=== PATIENT | male | born 1960 | race Caucasian/White ===

== ENCOUNTER 2019-12-20 10:32 | Day surgery (SDC) | payer OTHER ==
[~2019-12-20] VITALS: Ht 182.9 cm; Wt 99.3 kg
[~2019-12-20 10:32] MED LIST: ALBU90OI; ALBU90OI INH; ASPI81CH PO; ATOR80 PO; Aspirin EC81 MG; B Complete1 EACH; Bactrim 400-801 EACH PO; CENTRUM SILVER1 EAC2 PO; CENTRUM ULTRA1 EAC1; CYCLOPHOSPHAMID50 MG PO; ERGO50000; FURO40 PO; K-Dur 20 meq T20 MEQ PO; LISI20 PO; LOSA25; LOSA50 PO; LOVA40 PO; METO2.5; METO2.5 PO; METO25; Metoprolol Tart25 MG PO; Micro-K10 MEQ; Nitrostat0.4 MG SL; Omeprazole20 M1; Omeprazole20 M1 PO; PANT40 PO; PRED10 PO; PRED5 PO; ROSU10TA PO; Solu-Medrol1000 MG IV; VITAMIN D32000 UNIT PO
== END 2019-12-20 13:52 | disposition home or self-care (01) ==
LOC: ORSCSDS 10:32
PROVIDERS: Internal Medicine Gastroenterology
PROC: 0DBN8ZX Excision of Sigmoid Colon, Via Natural or Artificial Opening Endoscopic, Diagnostic (ICD-10-PCS; principal; 2019-12-20 12:15)
PROC: 0DBK8ZX Excision of Ascending Colon, Via Natural or Artificial Opening Endoscopic, Diagnostic (ICD-10-PCS; principal; 2019-12-20 12:15)
PROC: 0DBH8ZX Excision of Cecum, Via Natural or Artificial Opening Endoscopic, Diagnostic (ICD-10-PCS; principal; 2019-12-20 12:15)
PROC: 0DJ08ZZ Inspection of Upper Intestinal Tract, Via Natural or Artificial Opening Endoscopic (ICD-10-PCS; principal; 2019-12-20 12:15)
PROC: 0DBP8ZX Excision of Rectum, Via Natural or Artificial Opening Endoscopic, Diagnostic (ICD-10-PCS; principal; 2019-12-20 12:15)
PROC: 0DBC8ZX Excision of Ileocecal Valve, Via Natural or Artificial Opening Endoscopic, Diagnostic (ICD-10-PCS; principal; 2019-12-20 12:15)
DX: K52.9 Noninfective gastroenteritis and colitis, unspecified (principal); K74.60 Unspecified cirrhosis of liver; D12.0 Benign neoplasm of cecum; D12.2 Benign neoplasm of ascending colon; D12.5 Benign neoplasm of sigmoid colon; D12.8 Benign neoplasm of rectum; K62.1 Rectal polyp; K20.9 Esophagitis, unspecified; K76.6 Portal hypertension; K31.89 Other diseases of stomach and duodenum; K64.1 Second degree hemorrhoids; I10 Essential (primary) hypertension; J45.909 Unspecified asthma, uncomplicated; Z79.899 Other long term (current) drug therapy; Z87.891 Personal history of nicotine dependence; Z79.82 Long term (current) use of aspirin
CPT/HCPCS: 88305; J2250; J2704; J7120

== ENCOUNTER → 2022-12-14 | Outpatient (CLI) | payer OTHER ==
[2022-12-14 19:23] LABS: Creatinine, Urine Random 58.1 mg/dL (27.00-270.00); Protein, Urine Random 116.6 mg/dL (0.0-11.9)
== END | disposition home or self-care (01) ==
LOC: LAB SHORT 15:15 → LAB 15:15
PROVIDERS: Hospitalist
DX: N02.2 Recurrent and persistent hematuria with diffuse membranous glomerulonephritis (principal); N04.2 Nephrotic syndrome with diffuse membranous glomerulonephritis
CPT/HCPCS: 82570; 84156

== ENCOUNTER 2023-02-24 12:50 | Day surgery (SDC) | payer OTHER ==
[~2023-02-24] VITALS: Ht 182.9 cm; Wt 93.0 kg
[2023-02-24] MEDS ORDERED: BUPR150ER (13:22)
--- NOTE | 2023-02-24 14:58 | NUR ---
02/24/23 1458 Evans Morris IV REMOVED INTACT. SITE WNL.
[2023-02-24 14:59] VITALS: BP 103/78
== END 2023-02-24 15:05 | disposition home or self-care (01) ==
LOC: ORSCSDS 12:50
PROVIDERS: Internal Medicine Gastroenterology
PROC: 0DBM8ZX Excision of Descending Colon, Via Natural or Artificial Opening Endoscopic, Diagnostic (ICD-10-PCS; principal; 2023-02-24 14:15)
PROC: 0DJ08ZZ Inspection of Upper Intestinal Tract, Via Natural or Artificial Opening Endoscopic (ICD-10-PCS; principal; 2023-02-24 14:15)
PROC: 0DBL8ZX Excision of Transverse Colon, Via Natural or Artificial Opening Endoscopic, Diagnostic (ICD-10-PCS; principal; 2023-02-24 14:15)
PROC: 0DBP8ZX Excision of Rectum, Via Natural or Artificial Opening Endoscopic, Diagnostic (ICD-10-PCS; principal; 2023-02-24 14:15)
DX: Z12.11 Encounter for screening for malignant neoplasm of colon (principal); Z13.810 Encounter for screening for upper gastrointestinal disorder; K74.60 Unspecified cirrhosis of liver; Z86.010 Personal history of colon polyps; D12.3 Benign neoplasm of transverse colon; D12.4 Benign neoplasm of descending colon; D12.8 Benign neoplasm of rectum; K76.6 Portal hypertension; K31.89 Other diseases of stomach and duodenum; E78.5 Hyperlipidemia, unspecified; I10 Essential (primary) hypertension; N17.9 Acute kidney failure, unspecified; J45.909 Unspecified asthma, uncomplicated; Z79.899 Other long term (current) drug therapy; Z79.82 Long term (current) use of aspirin
CPT/HCPCS: 88305; J2250; J2405; J2704; J7120

== ENCOUNTER → 2023-06-21 | Outpatient (CLI) | payer OTHER ==
[~2023-06-21] MED LIST changes: +BUPR150ER
[2023-06-21 08:15] LABS: Source, Urine Voided
[2023-06-21 11:02] LABS: Appearance, Urine Clear (Clear); Bilirubin, Urine Neg (Neg); Blood, Urine 2+ (Neg); Color, Urine Yellow (P-Yellow); Glucose Qualitative, Urine Neg (Neg); Ketones, Urine Neg (Neg); Leukocyte Esterase, Urine Neg (Neg); Nitrite, Urine Neg (Neg); Protein, Urine 3+ (Neg); Specific Gravity, Urine 1.015 (1.003-1.022); Urobilinogen, Urine NORM (Normal)
[2023-06-21 11:10] LABS: Bacteria Rare /hpf; Squamous Epithelial Cells Rare /hpf (Few); White Blood Cells, Urine 0-2 /hpf (0-5)
[2023-06-21 12:46] LABS: Creatinine, Urine Random 84.1 mg/dL (27.00-270.00); Protein, Urine Random 138.7 mg/dL (0.0-11.9); Protein/Creat Ratio, Ur Random 1.6
== END | disposition home or self-care (01) ==
LOC: LAB SHORT 07:45 → LAB 07:45 → LAB FUT 06-14 15:55 → EDSTATUS 06-14 15:55
PROVIDERS: Hospitalist
DX: N02.2 Recurrent and persistent hematuria with diffuse membranous glomerulonephritis (principal); N04.20 Nephrotic syndrome with diffuse membranous glomerulonephritis, unspecified
CPT/HCPCS: 81001; 82570; 84156

== ENCOUNTER → 2024-01-30 | Outpatient (CLI) | payer OTHER ==
[2024-01-30 14:39] LABS: Bun/Creatinine Ratio 14.4 (12.0-20.0); Calcium, Blood 9.1 mg/dL (8.5-10.1); Creatinine, Blood 0.97 mg/dL (0.60-1.20); Potassium, Blood 3.6 mmol/L (3.5-5.5)
== END ==
LOC: LAB SHORT 07:56 → LAB 07:56
PROVIDERS: Internal Medicine
DX: I10 Essential (primary) hypertension (principal)
CPT/HCPCS: 80048

== ENCOUNTER 2025-04-03 19:16 | Inpatient (IN) | payer OTHER ==
[~2025-04-03] VITALS: Ht 177.8 cm; Wt 73.3 kg
[2025-04-03 19:41] LABS: BASOPHILS ABSOLUTE AUTO 0.06 K/mm3 (0.00-0.23); BASOPHILS PERCENT AUTO 1 % (0-2); EOSINOPHILS ABSOLUTE AUTO 0.10 K/mm3 (0.00-0.68); EOSINOPHILS PERCENT AUTO 1 % (0-6); Hematocrit 45.4 % (37.0-53.0); Hemoglobin 15.7 g/dL (13.5-17.5); IMMATURE GRAN ABSOLUTE AUTO 0.03 K/mm3 (0.00-0.10); IMMATURE GRAN PERCENT AUTO 0 % (0-1); LYMPHOCYTES ABSOLUTE AUTO 2.08 K/mm3 (0.84-5.20); LYMPHOCYTES PERCENT AUTO 20 % (21-46); MONOCYTES ABSOLUTE AUTO 1.07 K/mm3 (0.16-1.47); MONOCYTES PERCENT AUTO 10 % (4-13); Mean Corpuscular HGB Conc 34.6 g/dL (31.5-36.5); Mean Corpuscular Volume 96 fL (80-100); NEUTROPHILS ABSOLUTE AUTO 7.01 K/mm3 (1.96-9.15); NEUTROPHILS PERCENT AUTO 68 % (41-73); NRBC ABSOLUTE 0.00 K/mm3 (0.00-0.02); NRBC Auto 0.0 /100 WBC (0.0-0.2); Platelet Count 255 K/mm3 (150-400); RDW Coefficient Variation 12.3 % (11.7-14.2); RDW Standard Deviation 43.8 fL (35.1-46.3)
[2025-04-03] MEDS ORDERED: Diltiazem HCl 5 MG / ML 5ML Vial IV ONE (19:50)
[2025-04-03] MEDS ORDERED: NS 1,000 ML IV SCH (19:50)
[2025-04-03 20:11] LABS: Alanine Aminotransfer (ALT/SGP 29.0 U/L (12-78); Albumin, Blood 2.4 g/dL (3.4-5.0); Albumin/Globulin Ratio 0.5 (0.8-1.8); Anion Gap 9.0 mmol/L (3-11); Aspartate Aminotrans (AST/SGOT 30.0 U/L (12-37); Bilirubin, Total 0.4 mg/dL (0.1-1.0); Blood Urea Nitrogen 21.0 mg/dL (8-24); CO2, Blood 27.0 mmol/L (21-32); Calcium, Blood 11.2 mg/dL (8.5-10.1); Chloride, Blood 101.0 mmol/L (98-108); Creatinine, Blood 0.79 mg/dL (0.60-1.20); Globulin, Blood 4.9 g/dL (2.2-4.0); Glucose, Blood 112.0 mg/dL (70-99); Potassium, Blood 3.8 mmol/L (3.5-5.5); Sodium, Blood 133.0 mmol/L (136-145); Total Protein, Blood 7.3 g/dL (6.4-8.2)
[2025-04-04] MEDS ORDERED: FLU VACC TS2025-26(6MOS UP)/PF 45 MCG/0.5 ML SYRINGE IM SCH (00:50)
[2025-04-04 02:20] VITALS: BP 98/79
[2025-04-04] MEDS ORDERED: Metoprolol Tartrate 1 MG/ML 5 ML VIAL IV PRN (04:20)
[2025-04-04] MEDS ORDERED: Haloperidol Lactate Inj. 5 MG/ML Injection IV ONE (04:50)
[2025-04-04] MEDS ORDERED: FentaNYL Citrate 50 MCG/ML 2 ML Injection IV PRN (04:50)
--- NOTE | 2025-04-04 05:21 | NUR ---
ADMIT NOTE 64 YR OLD MALE ADMITTED TO FLOOR FROM THE ED WITH DX OF A FIB WITH RVR. ACCOMPANIED TO FLOOR BY WHO WAS ABLE TO ANSWER ADMIT AND MED HX QUESTIONS. PT WAS AGITATED IN THE ED AND UPON ARRIVAL ON FLOOR, 1:1 SITTER WAS INITIATED FOR SAFETY. PT VERY AGITATED, UNSTEADY ON FEET AND A/O X 1 (SELF). NOT REDIRECTABLE. MD ORDERS FOR ULISES OBTAINED. PRN MEDS ORDERED AND ADMINISTERED - SEE MAR FOR DETAILS. RAILS UP X 3, CALL LIGHT IN REACH, AND BED IN LOW POSITION FOR SAFETY.
[2025-04-04 07:56] LABS: BASOPHILS ABSOLUTE AUTO 0.09 K/mm3 (0.00-0.23); BASOPHILS PERCENT AUTO 1 % (0-2); EOSINOPHILS ABSOLUTE AUTO 0.06 K/mm3 (0.00-0.68); EOSINOPHILS PERCENT AUTO 1 % (0-6); Hematocrit 43.8 % (37.0-53.0); Hemoglobin 14.8 g/dL (13.5-17.5); IMMATURE GRAN ABSOLUTE AUTO 0.04 K/mm3 (0.00-0.10); IMMATURE GRAN PERCENT AUTO 0 % (0-1); LYMPHOCYTES ABSOLUTE AUTO 1.60 K/mm3 (0.84-5.20); LYMPHOCYTES PERCENT AUTO 15 % (21-46); MONOCYTES ABSOLUTE AUTO 1.08 K/mm3 (0.16-1.47); MONOCYTES PERCENT AUTO 10 % (4-13); Mean Corpuscular HGB Conc 33.8 g/dL (31.5-36.5); Mean Corpuscular Volume 97 fL (80-100); NEUTROPHILS ABSOLUTE AUTO 8.08 K/mm3 (1.96-9.15); NEUTROPHILS PERCENT AUTO 74 % (41-73); NRBC ABSOLUTE 0.00 K/mm3 (0.00-0.02); NRBC Auto 0.0 /100 WBC (0.0-0.2); Platelet Count 228 K/mm3 (150-400); RDW Coefficient Variation 12.5 % (11.7-14.2); RDW Standard Deviation 44.7 fL (35.1-46.3)
[2025-04-04 08:17] VITALS: BP 76/61
[2025-04-04 09:56] LABS: Alanine Aminotransfer (ALT/SGP 25.0 U/L (12-78); Albumin, Blood 2.3 g/dL (3.4-5.0); Albumin/Globulin Ratio 0.5 (0.8-1.8); Anion Gap 8.0 mmol/L (3-11); Aspartate Aminotrans (AST/SGOT 28.0 U/L (12-37); Bilirubin, Total 0.6 mg/dL (0.1-1.0); Blood Urea Nitrogen 18.0 mg/dL (8-24); CO2, Blood 27.0 mmol/L (21-32); Calcium, Blood 11.2 mg/dL (8.5-10.1); Chloride, Blood 103.0 mmol/L (98-108); Creatinine, Blood 0.87 mg/dL (0.60-1.20); Globulin, Blood 4.5 g/dL (2.2-4.0); Glucose, Blood 88.0 mg/dL (70-99); Magnesium, Blood 1.3 mg/dL (1.6-2.4); Potassium, Blood 3.9 mmol/L (3.5-5.5); Sodium, Blood 134.0 mmol/L (136-145); Total Protein, Blood 6.8 g/dL (6.4-8.2)
--- NOTE | 2025-04-04 09:56 | NUR ---
DISCUSSED CONCERNS WITH PATIENT'S BLOOD PRESSURE AND HEART RATE. METOPROLOL WAS HELD DUE TO BP. DR. PARNELL NOTIFIED, ALONG WITH THE PATIENT REFUSING TO TAKE HIS ELIQUIS. REQUESTED SOMETHING FOR PRN AGITATION OTHER THAN IM ZYPREXA. AFTER DISCUSSION WITH DR. PARNELL AND DR. MCCOY. THE PLAN WAS TO ORDER SOMETHING AND START THE PATIENT ON IV FLUIDS. AWAITING ORDERS.
[2025-04-04 10:52] LABS: Source, Urine Straight Cath
[2025-04-04 11:24] LABS: Bilirubin, Urine Neg (Neg); Color, Urine Yellow (P-Yellow); Glucose Qualitative, Urine Neg (Neg); Ketones, Urine Neg (Neg); Leukocyte Esterase, Urine Neg (Neg); Protein, Urine 3+ (Neg); Specific Gravity, Urine 1.020 (1.003-1.022); Urobilinogen, Urine NORM (Normal)
--- NOTE | 2025-04-04 11:36 | NUR ---
CALLED AND NOTIFIED DR. PARNELL ABOUT THE PATIENT'S A MAGNESIUM LEVEL. AWAITING ORDERS.
[2025-04-04 11:42] VITALS: BP 81/59
[2025-04-04] MEDS ORDERED: Magnesium Sulf 2 GM/Water 50ML 50 ML IV ONE (12:20)
[2025-04-04] MEDS ORDERED: LORazepam 2 MG/ML 1ML Injection IV ONE (13:00)
--- NOTE | 2025-04-04 13:03 | NUR ---
MET WITH PATIENT AND HIS MEGA. WE DISCUSSED PATIENTS RECENT CANCER DIAGNOSIS. HE HAD A HEAD AND PELVIC CT ONE MONTH AGO. DIAGNOSED WITH LUNC, LIVER AND SKULL CANCER. SAW ONCOLOGIST IN [place]. PATIENT HAS HAD DECREASED APPETITIE, INCREASED LETHARGY, AND INCREASED CONFUSION. WE HAD EXTENSIVE CONVERSATION ABOUT DIRECTION OF CARE. WE DISCUSSED CODE STATUS AND THE IMPLICATIONS OF CPR AND INTUBATION. MEGA IS HOPING THAT THE PATIENT MAKES SOME AMOUNT OF RECOVERY SO THAT HE CAN PARTICIPATE WITH DECISIONSL, BUT SHE IS PREPAIRED THAT HE MAY NOT. SHE IS UNCERTIAN ABOUT DECISIONS ABOUT CODE STATUS AT THIS TIME. PATIENT IS AGITATED IN BED. ASSISTED REPOSITIONING. PATIENT WAS BLADDER SCANNED AND STRAIGHTCATHED FOR RETENTION. WHEN THIS PCRN LEFT PATIENT WAS COMFORTABLE AND SLEEPING.
--- NOTE | 2025-04-04 13:47 | NUR ---
CHANGED DIET TO PUREE POST BREAKFAST DO TO PATIENT POCKETING FOOD AND NOT CHEWING THROUGHOUTLY. PATIENT'S MEGA SHARED THAT HE HAS BEEN HAVING ISSUES WITH THAT LATELY AND THEY HAVE BEEN MAINLY DOING YOGURT AND MILK.
[2025-04-04] MEDS ORDERED: Mag Sulfate 1 GM/D5% 100ML 100 ML IV ONE (14:30)
[2025-04-04 15:19] VITALS: BP 105/70
[2025-04-04] MEDS ORDERED: Mag Sulfate 1 GM/D5% 100ML 100 ML IV STA (15:59)
--- NOTE | 2025-04-04 16:18 | NUR ---
ASSUMED CARE OF PATIENT AT 1445
--- NOTE | 2025-04-04 19:27 | NUR ---
SHIFT SUMMARY PATIENT IS A&OX0-1. SITTING UP IN BED. URINE RETENTION REQUIRING 3 STRAIGHT CATHS AT Q4HR TODAY. LR IS RUNNING FOR 1L AT 200ML/HR. ON RA. TELE WITH SINUS TACH IN 1-TEENS. IS AMBULATORY WITH ASSISTANCE. BED IN LOWEST POSITION WITH BED ALARM ARMED.
[2025-04-04 20:11] VITALS: BP 107/80
[2025-04-05] VITALS (14 sets, daily range): BP systolic 88–112; BP diastolic 60–97
[2025-04-05] MEDS ORDERED: Lidocaine 2% Jelly Uro-Jet UR ONE (01:45)
[2025-04-05] MEDS ORDERED: LORazepam 2 MG/ML 1ML Injection IV ONE (04:05)
[2025-04-05 06:36] LABS: BASOPHILS ABSOLUTE AUTO 0.01 K/mm3 (0.00-0.23); BASOPHILS PERCENT AUTO 0 % (0-2); EOSINOPHILS ABSOLUTE AUTO 0.01 K/mm3 (0.00-0.68); EOSINOPHILS PERCENT AUTO 0 % (0-6); Hematocrit 43.5 % (37.0-53.0); Hemoglobin 14.7 g/dL (13.5-17.5); IMMATURE GRAN ABSOLUTE AUTO 0.03 K/mm3 (0.00-0.10); IMMATURE GRAN PERCENT AUTO 0 % (0-1); LYMPHOCYTES ABSOLUTE AUTO 0.97 K/mm3 (0.84-5.20); LYMPHOCYTES PERCENT AUTO 10 % (21-46); MONOCYTES ABSOLUTE AUTO 0.62 K/mm3 (0.16-1.47); MONOCYTES PERCENT AUTO 6 % (4-13); Mean Corpuscular HGB Conc 33.8 g/dL (31.5-36.5); Mean Corpuscular Volume 97 fL (80-100); NEUTROPHILS ABSOLUTE AUTO 8.35 K/mm3 (1.96-9.15); NEUTROPHILS PERCENT AUTO 84 % (41-73); NRBC ABSOLUTE 0.00 K/mm3 (0.00-0.02); NRBC Auto 0.0 /100 WBC (0.0-0.2); Platelet Count 232 K/mm3 (150-400); RDW Coefficient Variation 12.4 % (11.7-14.2); RDW Standard Deviation 44.4 fL (35.1-46.3)
[2025-04-05] MEDS ORDERED: Metoprolol Tartrate 1 MG/ML 5 ML VIAL IV ONE (07:00)
[2025-04-05 07:15] LABS: Alanine Aminotransfer (ALT/SGP 28.0 U/L (12-78); Albumin, Blood 2.1 g/dL (3.4-5.0); Albumin/Globulin Ratio 0.5 (0.8-1.8); Anion Gap 11.0 mmol/L (3-11); Aspartate Aminotrans (AST/SGOT 33.0 U/L (12-37); Bilirubin, Total 0.7 mg/dL (0.1-1.0); Blood Urea Nitrogen 21.0 mg/dL (8-24); CO2, Blood 23.0 mmol/L (21-32); Calcium, Blood 11.2 mg/dL (8.5-10.1); Chloride, Blood 106.0 mmol/L (98-108); Creatinine, Blood 0.81 mg/dL (0.60-1.20); Globulin, Blood 4.5 g/dL (2.2-4.0); Glucose, Blood 128.0 mg/dL (70-99); Magnesium, Blood 1.9 mg/dL (1.6-2.4); Potassium, Blood 4.5 mmol/L (3.5-5.5); Sodium, Blood 135.0 mmol/L (136-145); Total Protein, Blood 6.6 g/dL (6.4-8.2)
--- NOTE | 2025-04-05 07:36 | NUR ---
SHIFT SUMMARY ALERT, ORIENTED TO SELF ONLY. AGITATED FOR MOST OF SHIFT, PRN OLANZAPINE AND SEROQUEL WITH MINIMAL EFFECT. 1MG ATIVATN APPEARED MORE EFFECTIVE. SOFT BL WRIST RESTRAINTS IN PLACE FOR FREQUENT OUT OF BED, REMOVING TELE LEADS AND REMOVING CATH SECURE. UPTON CATH PLACED, PT TOLERATED FAIRLY. MD CONTACTED FOR INCREASING HR WITH BP 93/70; LOPRESSOR GIVEN PER MD. SAFETY PRECAUTIONS IN PLACE.
[2025-04-05] MEDS ORDERED: Enoxaparin 80 MG/0.8 ML SYR SC SCH (10:00)
[2025-04-05] MEDS ORDERED: Lidocaine 4% 1 Patch TOP PRN (11:35)
--- NOTE | 2025-04-05 13:05 | NUR ---
SPOKE TO DR CHAN. REQUEST TELE NOTIFY US IF H/R >120 SUSTAINED
--- NOTE | 2025-04-05 16:35 | NUR ---
Met with pt's Adela. She is tearful today, states she recognizes there is likely no path forward other than hospice. The patient is confused, combative, and has a metastatic cancer, likely with lung as primary source. Plan to contact Dr. Busch's office on 04/07 as he was consulted by Dr. Trejo (oncologist) in [place], [place].
--- NOTE | 2025-04-05 18:37 | NUR ---
PT WOKE UP THIS EARLY AFTERNOON. ABOUT 1PM. TALKING, BUT MUMBLES AND UNCLEAR OF WHAT HE WANTS. STATES HE HAS IMPROVED SOME, BUT NOT BASELINE. WAS BETTER PRIOR TO LUNG BIOPSY THIS MONDAY. CONTINUES TO PULL AT LINES IF CAN REACH, FAMILY IN TO VISIT MUCH OF DAY. LEFT WHEN HE GOT MORE COMBATIVE. H/R UP TODAY. TREATED WITH METOPROLOL THIS AM AND THIS SHAHIDA. BROUGHT DOWN TO WNL. BOLUSED FOR LOW BP THIS AM. ALSO DR STARTED MAINTANANCE FLUIDS. BECOMING SOMEWHAT MORE AGITATED THIS SHAHIDA. RESTRAINTS REMAIN FOR HIS SAFETY. BED IN LOW POSITIOIN, CALL LITE IN REACH, BED ALARM ON FOR HIS SAFETY
[2025-04-06] VITALS (9 sets, daily range): BP systolic 86–106; BP diastolic 70–83
[2025-04-06 06:05] LABS: BASOPHILS ABSOLUTE AUTO 0.01 K/mm3 (0.00-0.23); BASOPHILS PERCENT AUTO 0 % (0-2); EOSINOPHILS ABSOLUTE AUTO 0.00 K/mm3 (0.00-0.68); EOSINOPHILS PERCENT AUTO 0 % (0-6); Hematocrit 40.0 % (37.0-53.0); Hemoglobin 13.5 g/dL (13.5-17.5); IMMATURE GRAN ABSOLUTE AUTO 0.02 K/mm3 (0.00-0.10); IMMATURE GRAN PERCENT AUTO 0 % (0-1); LYMPHOCYTES ABSOLUTE AUTO 0.85 K/mm3 (0.84-5.20); LYMPHOCYTES PERCENT AUTO 10 % (21-46); MONOCYTES ABSOLUTE AUTO 0.46 K/mm3 (0.16-1.47); MONOCYTES PERCENT AUTO 5 % (4-13); Mean Corpuscular HGB Conc 33.8 g/dL (31.5-36.5); Mean Corpuscular Volume 96 fL (80-100); NEUTROPHILS ABSOLUTE AUTO 7.63 K/mm3 (1.96-9.15); NEUTROPHILS PERCENT AUTO 85 % (41-73); NRBC ABSOLUTE 0.00 K/mm3 (0.00-0.02); NRBC Auto 0.0 /100 WBC (0.0-0.2); Platelet Count 209 K/mm3 (150-400); RDW Coefficient Variation 12.5 % (11.7-14.2); RDW Standard Deviation 44.4 fL (35.1-46.3)
[2025-04-06 06:25] LABS: Alanine Aminotransfer (ALT/SGP 29.0 U/L (12-78); Albumin, Blood 2.0 g/dL (3.4-5.0); Albumin/Globulin Ratio 0.5 (0.8-1.8); Anion Gap 10.0 mmol/L (3-11); Aspartate Aminotrans (AST/SGOT 32.0 U/L (12-37); Bilirubin, Total 0.4 mg/dL (0.1-1.0); Blood Urea Nitrogen 27.0 mg/dL (8-24); CO2, Blood 24.0 mmol/L (21-32); Calcium, Blood 10.8 mg/dL (8.5-10.1); Chloride, Blood 109.0 mmol/L (98-108); Creatinine, Blood 0.68 mg/dL (0.60-1.20); Globulin, Blood 4.2 g/dL (2.2-4.0); Glucose, Blood 113.0 mg/dL (70-99); Magnesium, Blood 1.8 mg/dL (1.6-2.4); Phosphorus, Blood 3.0 mg/dL (2.5-4.9); Potassium, Blood 4.0 mmol/L (3.5-5.5); Sodium, Blood 139.0 mmol/L (136-145); Total Protein, Blood 6.2 g/dL (6.4-8.2)
[2025-04-06] MEDS ORDERED: Magnesium Sulf 2 GM/Water 50ML 50 ML IV ONE (07:05)
--- NOTE | 2025-04-06 07:19 | NUR ---
SHIFT SUMMARY ALERT, UNABLE TO ASSESS ORIENTATION. PT DENIES PAIN, NO SIGNS OF PAIN BY FLACC SCALE. PT ABLE TO REMOVE SOFT WRIST RESTRAINTS; RECEIVED ORDER FOR LOCKING WRIST RESTRAINTS. TUFF CUFFS MORE EFFECTIVE IN PREVENTING REMOVAL OF TELE LEADS AND PICKING AT CATH SECURE. LR CONTINUOUS AT 125 ML/HR. PRN LOPRESSOR GIVEN FOR HR 150-160 PER WEBBING INSPECTOR. SAFETY PRECAUTIONS IN PLACE.
[2025-04-06] MEDS ORDERED: LORazepam 2 MG/ML 1ML Injection IV PRN (09:55)
--- NOTE | 2025-04-06 18:11 | NUR ---
pt mostly restless today. removed restraints today and placed in recliner chair with bed alarm. got a sitter to keep safe. she has spent most of day when awake, keeping him from getting up on feet and from falling. sitter states he just cat-napping t/o day and he is trying to get up at least half of day. in to see today, now back in bed and building some more anx. will be medicating if possible shortly. no other new concerns noted. bed inlow position, call lite in reach, bed alarm on for safety, sitter at bedside for safety
[2025-04-07] VITALS (8 sets, daily range): BP systolic 97–131; BP diastolic 66–119
[2025-04-07 06:14] LABS: BASOPHILS ABSOLUTE AUTO 0.01 K/mm3 (0.00-0.23); BASOPHILS PERCENT AUTO 0 % (0-2); EOSINOPHILS ABSOLUTE AUTO 0.01 K/mm3 (0.00-0.68); EOSINOPHILS PERCENT AUTO 0 % (0-6); Hematocrit 38.7 % (37.0-53.0); Hemoglobin 13.1 g/dL (13.5-17.5); IMMATURE GRAN ABSOLUTE AUTO 0.02 K/mm3 (0.00-0.10); IMMATURE GRAN PERCENT AUTO 0 % (0-1); LYMPHOCYTES ABSOLUTE AUTO 0.65 K/mm3 (0.84-5.20); LYMPHOCYTES PERCENT AUTO 9 % (21-46); MONOCYTES ABSOLUTE AUTO 0.34 K/mm3 (0.16-1.47); MONOCYTES PERCENT AUTO 5 % (4-13); Mean Corpuscular HGB Conc 33.9 g/dL (31.5-36.5); Mean Corpuscular Volume 98 fL (80-100); NEUTROPHILS ABSOLUTE AUTO 6.12 K/mm3 (1.96-9.15); NEUTROPHILS PERCENT AUTO 86 % (41-73); NRBC ABSOLUTE 0.00 K/mm3 (0.00-0.02); NRBC Auto 0.0 /100 WBC (0.0-0.2); Platelet Count 193 K/mm3 (150-400); RDW Coefficient Variation 12.6 % (11.7-14.2); RDW Standard Deviation 45.3 fL (35.1-46.3)
--- NOTE | 2025-04-07 06:39 | NUR ---
SHIFT SUMMARY ALERT, ORIENTED TO SELF. FREQUENT OOB ATTEMPTS AND TUGGING LINES; RECEIVED ORDER FOR BL WRIST RESTRAINTS. HR 90-150s PER TELE MONITOR, OTHER VSS ON RA. LR, 125 ML/HR. UPTON PATENT. DAY 4, NO BM. 6 BEAT RUN OF VTACH NOTED AT 0530. PT'S SPEECH MORE CLEAR AND ON-TOPIC THIS SHIFT. TRIALLED AMBULATION; PT DIFFICULT TO REDIRECT. SAFETY PRECAUTIONS IN PLACE.
[2025-04-07 06:40] LABS: Alanine Aminotransfer (ALT/SGP 35.0 U/L (12-78); Albumin, Blood 2.1 g/dL (3.4-5.0); Albumin/Globulin Ratio 0.6 (0.8-1.8); Anion Gap 8.0 mmol/L (3-11); Aspartate Aminotrans (AST/SGOT 36.0 U/L (12-37); Bilirubin, Total 0.3 mg/dL (0.1-1.0); Blood Urea Nitrogen 25.0 mg/dL (8-24); CO2, Blood 27.0 mmol/L (21-32); Calcium, Blood 10.2 mg/dL (8.5-10.1); Chloride, Blood 110.0 mmol/L (98-108); Creatinine, Blood 0.69 mg/dL (0.60-1.20); Globulin, Blood 3.8 g/dL (2.2-4.0); Glucose, Blood 96.0 mg/dL (70-99); Magnesium, Blood 2.0 mg/dL (1.6-2.4); Phosphorus, Blood 3.0 mg/dL (2.5-4.9); Potassium, Blood 3.6 mmol/L (3.5-5.5); Sodium, Blood 141.0 mmol/L (136-145); Total Protein, Blood 5.9 g/dL (6.4-8.2)
--- NOTE | 2025-04-07 12:09 | NUR ---
LOCATED FINE NEEDLE ASPIRATION PATHOLOGY RESULTS FROM LOCATED WITHIN [facility] PATHOLOGY. ANDREWS RECEIVED COPY OF REFERRAL FROM DR.KHURAM ZARATE TO AT [facility]. SOURCE OF FLUID FROM SUBCARINAL, ENDOBRACHIAL LYMPH NODES DRAWN 03/31/25, RESULTED 04/02/25. COPY OF RESULTS TO BE PROVIDED TO .
[2025-04-07] MEDS ORDERED: Polyethylene Glycol 3350 17 gm PO PRN (13:35)
--- NOTE | 2025-04-07 13:35 | NUR ---
ATTEMPTED RESTRAINT BREAK. PATIENT RESPONDED WELL. EASILY REDIRECTABLE, FOLLOWING DIRECTIONS. BED ALARM ON FAMILY AT BEDSIDE. WILL DISCONTINUE RESTRAINTS AT THIS TIME. DR GONSALES
--- NOTE | 2025-04-07 18:48 | NUR ---
NOTIFIED DR OF 2.2 SEC PAUSE . VITALS ARE WNL. PT DENIES CP OR SOB. OR ANY PAIN AT THIS TIME. NO NEW ORDERS RECEIVED.
[2025-04-08 00:02] VITALS: BP 110/86
[2025-04-08] MEDS ORDERED: LORazepam 2 MG/ML 1ML Injection IV ONE (02:10)
[2025-04-08 03:18] VITALS: BP 104/81
[2025-04-08] MEDS ORDERED: Haloperidol Lactate Inj. 5 MG/ML Injection IV ONE (04:20)
[2025-04-08 06:26] LABS: BASOPHILS ABSOLUTE AUTO 0.00 K/mm3 (0.00-0.23); BASOPHILS PERCENT AUTO 0 % (0-2); EOSINOPHILS ABSOLUTE AUTO 0.00 K/mm3 (0.00-0.68); EOSINOPHILS PERCENT AUTO 0 % (0-6); Hematocrit 38.5 % (37.0-53.0); Hemoglobin 12.8 g/dL (13.5-17.5); IMMATURE GRAN ABSOLUTE AUTO 0.02 K/mm3 (0.00-0.10); IMMATURE GRAN PERCENT AUTO 0 % (0-1); LYMPHOCYTES ABSOLUTE AUTO 0.72 K/mm3 (0.84-5.20); LYMPHOCYTES PERCENT AUTO 12 % (21-46); MONOCYTES ABSOLUTE AUTO 0.45 K/mm3 (0.16-1.47); MONOCYTES PERCENT AUTO 7 % (4-13); Mean Corpuscular HGB Conc 33.2 g/dL (31.5-36.5); Mean Corpuscular Volume 97 fL (80-100); NEUTROPHILS ABSOLUTE AUTO 5.08 K/mm3 (1.96-9.15); NEUTROPHILS PERCENT AUTO 81 % (41-73); NRBC ABSOLUTE 0.00 K/mm3 (0.00-0.02); NRBC Auto 0.0 /100 WBC (0.0-0.2); Platelet Count 163 K/mm3 (150-400); RDW Coefficient Variation 12.8 % (11.7-14.2); RDW Standard Deviation 45.5 fL (35.1-46.3)
[2025-04-08 07:02] LABS: Alanine Aminotransfer (ALT/SGP 40.0 U/L (12-78); Albumin, Blood 2.1 g/dL (3.4-5.0); Albumin/Globulin Ratio 0.6 (0.8-1.8); Anion Gap 10.0 mmol/L (3-11); Aspartate Aminotrans (AST/SGOT 34.0 U/L (12-37); Bilirubin, Total 0.5 mg/dL (0.1-1.0); Blood Urea Nitrogen 20.0 mg/dL (8-24); CO2, Blood 25.0 mmol/L (21-32); Calcium, Blood 9.6 mg/dL (8.5-10.1); Chloride, Blood 112.0 mmol/L (98-108); Creatinine, Blood 0.68 mg/dL (0.60-1.20); Globulin, Blood 3.7 g/dL (2.2-4.0); Glucose, Blood 97.0 mg/dL (70-99); Magnesium, Blood 1.7 mg/dL (1.6-2.4); Phosphorus, Blood 3.1 mg/dL (2.5-4.9); Potassium, Blood 3.7 mmol/L (3.5-5.5); Sodium, Blood 143.0 mmol/L (136-145); Total Protein, Blood 5.8 g/dL (6.4-8.2)
--- NOTE | 2025-04-08 07:12 | NUR ---
SHIFT SUMMARY; PT A/O X2 (SELF/PERSON ONLY), FORGETS HER LIMITATIONS- GETTING OOB AND IS ANXIOUS AT TIMES, NOT USING CALL LIGHT APPROPRIATELY. PT MEDICATED THROUGHOUT NIGHT W/0.5 MG IV ATIVAN PRN. RT SET PT UP ON BIPAP AND PT TOLERATED IT WELL AFTER RECEIVING ATIVAN AND SEROQUEL PER EMAR AND PT ON 2L NC O2 AT BASELINE WHILE AWAKE. DUE TO PT S FREQUENT IMPULSIVITY OOB, INCREASED FALL RISK R/T SEDATING MEDS, DIFFICULTY REDIRECTING, AND NOT FOLLOWING COMMANDS, ULISES RESTRAINT ORDER OBTAINED AND APPLIED. LUNG SOUNDS AUSCULTATED WITH DIMINISHED BREATH SOUNDS WITHIN THE LML AND LLL. PT HYPERTENSIVE AT START OF SHIFT BUT THIS IMPROVED AFTER ANXIETY MED. BED IN LOW POSITION WITH CALL LIGHT IN REACH.
[2025-04-08 07:35] VITALS: BP 127/105
--- NOTE | 2025-04-08 10:15 | NUR ---
THERAPUTIC LISTENING PROVIDED TO PT'S , MEGA. SHE IS ASKING ABOUT CONSULT WITH DR. RUSSELL (ONCOLOGY). WAS ABLE TO COMPLETE A DOC TO DOC CONSULT. SAT DOWN WITH MEGA TO PROVIDE A STATUS UPDATE AND REVIEWED CARE PLAN. PLAN IS TO CONTINUE ATTEMPTTING IMPROVEMENT WITH PT'S MENTATION. THEN FOLLOW UP WITH [facility] ON DISCHARGE,
[2025-04-08 11:13] VITALS: BP 113/89
[2025-04-08 16:31] VITALS: BP 113/97
--- NOTE | 2025-04-08 17:19 | NUR ---
SHIFT SUMMARY PT A&O TO SELF ONLY W/ CONFUSION AND IMPULSIVITY, 1:1 SITTER PRESENT, VSS, TOLERATING MINIMAL PO, VOIDING URINE, AND H/A MANAGED PER EMAR. NO BM THIS SHIFT, BOWEL CARE GIVEN PER ORDER. IV ACCESS LOST THIS SHIFT. PT PLAN TO HAVE POWERGLIDE PLACED DUE TO MULTIPLE FAILED IV ATTEMPTS. NO OTHER ACUTE CHANGES. CALL LIGHT WITHIN REACH.
--- NOTE | 2025-04-08 17:57 | NUR ---
POWERGLIDE PLACED. LR INFUSING PER ORDER.
[2025-04-08 20:09] VITALS: BP 118/82
[2025-04-09 00:11] VITALS: BP 102/92
--- NOTE | 2025-04-09 04:30 | NUR ---
TELE MONITOR ALERTED RN THAT PT WAS AFIB W/SLOW VENTRICULAR RATE OF 30'S BPM X2 BRIEF EPISODES LASTING APPROX 3 AND 4 BEATS. HE WAS ASLEEP W/O S/S CARDIAC DISTRESS OR PAIN AND HAD RECENTLY RECEIVED FENTANYL 50MCG IV PRN AT APPROX 0300. MADE AWARE AND FENTANYL WAS DC'D AT THE TIME W/REQUEST FOR RHYTHM STRIPS TO BE PLACED ON CHART FOR DAY MD'S REVIEW. WILL MONITOR CLOSELY FOR CHANGES/WORSENING AND SUSTAINED BRADYCARDIA.
--- NOTE | 2025-04-09 05:11 | NUR ---
SUMMARY: PT A/O TO SELF AND PERSON ONLY W/CONTINUED CONFUSION AND IMPULSIVITY. HE REMAINS VERY FIGITY AND RESTLESS, PULLING AT IV/TELE/UPTON AND MAKING ATTEMPTS OOB BY SELF. BED ALARM ON AND 1:1 SITTER IS IN PROGRESS FOR SAFETY AND PROTECTION OF LINES. PT WAS MEDICATED W/SHEDULED SEROQUEL, MELATONIN AND PRN ZYPREXA FOR BETTER RELIEF OF ANXIETY AND REST THIS SHIFT. HE WAS STILL AWAKE MUCH OF NIGHT BUT SLEPT FOR LONGER DURATIONS. LR INFUSES TO SELENA PG AT 100 ML/HR AND UPTON IS PATENT AND DRAINING. PT STILL HASN'T HAD A BM DESPITE BOWEL MEDS BEING RECEIVED PER EMAR. HE REPORTED A LANDRUM AND BACK PAIN W/FENTANYL RECEIVED FOR GOOD AFFECT. SHORTLY AFTER, ENAMEL MACHINE OPERATOR ALERTED RN THAT HR TRENDED DOWN TO 30'S BPM X2 NON-SUSTAINED EPISODES. HE WAS ASYMPTOMATIC OF DISTRESS BUT DC'D FENTANYL AT THE TIME W/INSTRUCTION PROVIDED FOR DAY MD TO REVIEW RHYTHM STRIPS, SEE PRIOR NOTE FOR DETAILS. HE'D PREVIOUSLY BEED AFIB/AFLUTTER T/O NOCTE W/HR 90'S-1TEENS, W/HIGH OF 160'S-190'S BPM WHILE AGGITATED AND RECOVERING AT REST. NO ACUTE CHANGES, ALL OTHER VSS. WILL REPORT TO DAY RN.
[2025-04-09 06:12] LABS: BASOPHILS ABSOLUTE AUTO 0.00 K/mm3 (0.00-0.23); BASOPHILS PERCENT AUTO 0 % (0-2); EOSINOPHILS ABSOLUTE AUTO 0.03 K/mm3 (0.00-0.68); EOSINOPHILS PERCENT AUTO 1 % (0-6); Hematocrit 38.9 % (37.0-53.0); Hemoglobin 13.1 g/dL (13.5-17.5); IMMATURE GRAN ABSOLUTE AUTO 0.03 K/mm3 (0.00-0.10); IMMATURE GRAN PERCENT AUTO 1 % (0-1); LYMPHOCYTES ABSOLUTE AUTO 1.01 K/mm3 (0.84-5.20); LYMPHOCYTES PERCENT AUTO 16 % (21-46); MONOCYTES ABSOLUTE AUTO 0.62 K/mm3 (0.16-1.47); MONOCYTES PERCENT AUTO 10 % (4-13); Mean Corpuscular HGB Conc 33.7 g/dL (31.5-36.5); Mean Corpuscular Volume 97 fL (80-100); NEUTROPHILS ABSOLUTE AUTO 4.76 K/mm3 (1.96-9.15); NEUTROPHILS PERCENT AUTO 74 % (41-73); NRBC ABSOLUTE 0.00 K/mm3 (0.00-0.02); NRBC Auto 0.0 /100 WBC (0.0-0.2); Platelet Count 131 K/mm3 (150-400); RDW Coefficient Variation 12.9 % (11.7-14.2); RDW Standard Deviation 46.5 fL (35.1-46.3)
[2025-04-09 06:55] LABS: Alanine Aminotransfer (ALT/SGP 39.0 U/L (12-78); Albumin, Blood 2.0 g/dL (3.4-5.0); Albumin/Globulin Ratio 0.5 (0.8-1.8); Anion Gap 6.0 mmol/L (3-11); Aspartate Aminotrans (AST/SGOT 42.0 U/L (12-37); Bilirubin, Total 0.7 mg/dL (0.1-1.0); Blood Urea Nitrogen 16.0 mg/dL (8-24); CO2, Blood 29.0 mmol/L (21-32); Calcium, Blood 9.6 mg/dL (8.5-10.1); Chloride, Blood 109.0 mmol/L (98-108); Creatinine, Blood 0.73 mg/dL (0.60-1.20); Globulin, Blood 3.7 g/dL (2.2-4.0); Glucose, Blood 78.0 mg/dL (70-99); Magnesium, Blood 1.7 mg/dL (1.6-2.4); Phosphorus, Blood 2.0 mg/dL (2.5-4.9); Potassium, Blood 3.7 mmol/L (3.5-5.5); Sodium, Blood 140.0 mmol/L (136-145); Total Protein, Blood 5.7 g/dL (6.4-8.2)
[2025-04-09 06:59] VITALS: BP 136/77
[2025-04-09] MEDS ORDERED: Sodium Phosphate Mono/Dibasic 250 MG Tab PO SCH (08:00)
[2025-04-09 10:15] VITALS: BP 142/95
[2025-04-09 11:40] VITALS: BP 142/95
[2025-04-09] MEDS ORDERED: Metoprolol Tartrate 1 MG/ML 5 ML VIAL IV ONE (11:55)
[2025-04-09 15:23] VITALS: BP 94/67
--- NOTE | 2025-04-09 16:28 | NUR ---
ROUNDED ON PATIENT THIS AM, AND SON AT BEDSIDE. MARIA HAD BEEN IN RESTRAINTS AND IS CURRENTLY OUT. HE IS IN A PLESANT MOOD THIS MORNING. CAME TO THE OFFICE THIS AFTERNOON AND DISCUSSED GOC. PC DRU LOPEZ AND KELSIE CHRISTOPHER INVOLVED IN CONVERSATION WITH SPOUSE. WE DISCUSSED WHAT IS IMPORTANT TO MARIA, QUALITY VS QUANTITY. THE POTENTIAL RISKS AND BENIFITS OF TREATING HIS CANCER. WE ASKED HER TO THINK ABOUT WHAT HE WOULD CHOOSE IF HE WAS ABLE TO MAKE DECISION. SHE SAID HE WOULD SAY TO STOP TREATMENT.
--- NOTE | 2025-04-09 18:12 | NUR ---
SHIFT SUMMARY PT ALERT TO SELF ONLY c CONFUSION AND IMPULSIVITY. 1:1 SITTER PRESENT AT BEDSIDE. PT IS TOLERATING MINIMAL PO, HAS A UPTON CATHETER IN PLACE THAT IS DRAINING TO GRAVITY. NO BM THIS SHIFT. PALLIATIVE CARE CONSULTED TODAY AND SPOKE WITH PT AND . CALL LIGHT WITHIN REACH OF PT.
[2025-04-09 19:31] VITALS: BP 115/88
[2025-04-10 00:09] VITALS: BP 119/86
[2025-04-10 03:43] VITALS: BP 131/87
--- NOTE | 2025-04-10 09:59 | NUR ---
DIFFICULTY ADMINISTERING MORNING MEDICATIONS THIS AM. MEDS WERE CRUSHED IN CHOCOLATE PUDDING. PT TOOK PARTIAL DOSE AND NEEDED FREQUENT GUIDANCE TO SWALLOW.
[2025-04-10 10:13] LABS: BASOPHILS ABSOLUTE AUTO 0.01 K/mm3 (0.00-0.23); BASOPHILS PERCENT AUTO 0 % (0-2); EOSINOPHILS ABSOLUTE AUTO 0.10 K/mm3 (0.00-0.68); EOSINOPHILS PERCENT AUTO 1 % (0-6); Hematocrit 37.8 % (37.0-53.0); Hemoglobin 12.8 g/dL (13.5-17.5); IMMATURE GRAN ABSOLUTE AUTO 0.02 K/mm3 (0.00-0.10); IMMATURE GRAN PERCENT AUTO 0 % (0-1); LYMPHOCYTES ABSOLUTE AUTO 1.04 K/mm3 (0.84-5.20); LYMPHOCYTES PERCENT AUTO 13 % (21-46); MONOCYTES ABSOLUTE AUTO 0.77 K/mm3 (0.16-1.47); MONOCYTES PERCENT AUTO 9 % (4-13); Mean Corpuscular HGB Conc 33.9 g/dL (31.5-36.5); Mean Corpuscular Volume 98 fL (80-100); NEUTROPHILS ABSOLUTE AUTO 6.37 K/mm3 (1.96-9.15); NEUTROPHILS PERCENT AUTO 77 % (41-73); NRBC ABSOLUTE 0.00 K/mm3 (0.00-0.02); NRBC Auto 0.0 /100 WBC (0.0-0.2); Platelet Count 133 K/mm3 (150-400); RDW Coefficient Variation 13.0 % (11.7-14.2); RDW Standard Deviation 46.3 fL (35.1-46.3)
[2025-04-10 10:29] LABS: Alanine Aminotransfer (ALT/SGP 39.0 U/L (12-78); Albumin, Blood 1.9 g/dL (3.4-5.0); Albumin/Globulin Ratio 0.5 (0.8-1.8); Anion Gap 6.0 mmol/L (3-11); Aspartate Aminotrans (AST/SGOT 34.0 U/L (12-37); Bilirubin, Total 0.9 mg/dL (0.1-1.0); Blood Urea Nitrogen 13.0 mg/dL (8-24); CO2, Blood 29.0 mmol/L (21-32); Calcium, Blood 9.7 mg/dL (8.5-10.1); Chloride, Blood 107.0 mmol/L (98-108); Creatinine, Blood 0.73 mg/dL (0.60-1.20); Globulin, Blood 3.7 g/dL (2.2-4.0); Glucose, Blood 86.0 mg/dL (70-99); Magnesium, Blood 1.5 mg/dL (1.6-2.4); Phosphorus, Blood 2.5 mg/dL (2.5-4.9); Potassium, Blood 3.7 mmol/L (3.5-5.5); Sodium, Blood 138.0 mmol/L (136-145); Total Protein, Blood 5.6 g/dL (6.4-8.2)
[2025-04-10] MEDS ORDERED: Magnesium Sulf 2 GM/Water 50ML 50 ML IV ONE (13:25)
[2025-04-10] MEDS ORDERED: HYDROcodone 5-APAP 325 TAB PO PRN (14:20)
--- NOTE | 2025-04-10 15:01 | NUR ---
Pt's came to talk with PC nurses today. She was tearful, asked questions about what comfort care and/or hospice would look like. She states the patient's sister will be coming to visit tomorrow, and they will discuss options at that time.
[2025-04-10 17:04] VITALS: BP 112/88
--- NOTE | 2025-04-10 17:13 | NUR ---
ROUNDED ON PT THIS AM. AT BEDSIDE. REPOSITIONED PATIENT. SUPPORTATIVE VISIT
--- NOTE | 2025-04-10 18:25 | NUR ---
SHIFT SUMMARY PT ALERT TO SELF ONLY, PT CONFUSED MOST OF THE TIME. PT AT BEDSIDE T/O SHIFT. PT HAS DEVELOPED A RASH ON FACE, NECK, BACK, DOCTOR NOTIFIED. PT IS TACHYCARDIC WITH NORMOTENSIVE BP's. PT DID HAVE A FEVER TODAY AND WAS MEDICATED PER EMAR, TEMP HAS SINCE GONE DOWN. NO OTHER ACUTE CHANGES THIS SHIFT. CALL LIGHT WITHIN REACH
[2025-04-10 19:55] VITALS: BP 116/78
--- NOTE | 2025-04-10 20:36 | NUR ---
ASSUMPTION OF CARE: THIS RN ASSUMED CARE OF PATIENT. ASLEEP DURING SHIFT CHANGE REPORT. LYING SUPINE IN BED. BREATHING EVEN AND UNLABORED c ROOM AIR. UPTON PATENT AND DRAINING YELLOW URINE TO GRAVITY. MOST RECENT TELE STRIP IN CHART INTERPRETED SINUS ARRHYTHMIA @ 104. BED IN LOWEST POSITION. CALL LIGHT WITHIN REACH. ACUTE NEEDS MET.
[2025-04-11] VITALS (8 sets, daily range): BP systolic 94–120; BP diastolic 63–88
--- NOTE | 2025-04-11 06:13 | NUR ---
END OF SHIFT SUMMARY: A&Ox2-4; MORE ORIENTED HE WOKE UP. COOPERATIVE WITH CARE. CALLS APPROPRIATELY AND IS ABLE TO ADVOCATE NEEDS. VSS. TELE STRIP IN CHART REVIEWED AND INTERPRETED SINUS TACH c PACs @ 108bpm. BREATHING EVEN AND UNLABORED c RAJanell CORONELEY PATENT AND DRAINING YELLOW URINE TO GRAVITY. TOLERATING DIET AND WAS PROVIDED c SNACK DURING NIGHT D/T SLEEPING THROUGH EVENING MEAL. MEDS CRUSHED. NO ACUTE OVERNIGHT EVENTS. LABS PENDING. BED IN LOWEST POSITION, CALL LIGHT WITHIN REACH, ALL NEEDS MET. REPORT TO ONCOMING NURSE.
[2025-04-11 07:11] LABS: BASOPHILS ABSOLUTE AUTO 0.02 K/mm3 (0.00-0.23); BASOPHILS PERCENT AUTO 0 % (0-2); EOSINOPHILS ABSOLUTE AUTO 0.25 K/mm3 (0.00-0.68); EOSINOPHILS PERCENT AUTO 3 % (0-6); Hematocrit 37.1 % (37.0-53.0); Hemoglobin 12.7 g/dL (13.5-17.5); IMMATURE GRAN ABSOLUTE AUTO 0.02 K/mm3 (0.00-0.10); IMMATURE GRAN PERCENT AUTO 0 % (0-1); LYMPHOCYTES ABSOLUTE AUTO 0.97 K/mm3 (0.84-5.20); LYMPHOCYTES PERCENT AUTO 11 % (21-46); MONOCYTES ABSOLUTE AUTO 0.78 K/mm3 (0.16-1.47); MONOCYTES PERCENT AUTO 9 % (4-13); Mean Corpuscular HGB Conc 34.2 g/dL (31.5-36.5); Mean Corpuscular Volume 97 fL (80-100); NEUTROPHILS ABSOLUTE AUTO 6.46 K/mm3 (1.96-9.15); NEUTROPHILS PERCENT AUTO 76 % (41-73); NRBC ABSOLUTE 0.00 K/mm3 (0.00-0.02); NRBC Auto 0.0 /100 WBC (0.0-0.2); Platelet Count 151 K/mm3 (150-400); RDW Coefficient Variation 13.1 % (11.7-14.2); RDW Standard Deviation 46.3 fL (35.1-46.3)
[2025-04-11 07:37] LABS: Alanine Aminotransfer (ALT/SGP 32.0 U/L (12-78); Albumin, Blood 1.8 g/dL (3.4-5.0); Albumin/Globulin Ratio 0.5 (0.8-1.8); Anion Gap 7.0 mmol/L (3-11); Aspartate Aminotrans (AST/SGOT 27.0 U/L (12-37); Bilirubin, Total 0.5 mg/dL (0.1-1.0); Blood Urea Nitrogen 13.0 mg/dL (8-24); CO2, Blood 28.0 mmol/L (21-32); Calcium, Blood 9.5 mg/dL (8.5-10.1); Chloride, Blood 104.0 mmol/L (98-108); Creatinine, Blood 0.72 mg/dL (0.60-1.20); Globulin, Blood 3.8 g/dL (2.2-4.0); Glucose, Blood 93.0 mg/dL (70-99); Magnesium, Blood 1.9 mg/dL (1.6-2.4); Phosphorus, Blood 2.2 mg/dL (2.5-4.9); Potassium, Blood 3.2 mmol/L (3.5-5.5); Sodium, Blood 136.0 mmol/L (136-145); Total Protein, Blood 5.6 g/dL (6.4-8.2)
[2025-04-11] MEDS ORDERED: Potassium Phosphate Dibasic 15 MM in Dextrose 5% 250 ML IV STA (07:54)
--- NOTE | 2025-04-11 15:30 | NUR ---
rounded on pt this am. he was resting and appeared comfortable. discussed case with provider. relayed previous conversations. patients spouse is waiting for patients sister to come see the patient and discuss options.
--- NOTE | 2025-04-11 18:11 | NUR ---
SHIFT SUMMARY PATIENT A/OX SELF, CONFUSED, DISORIENTED, DIFFICULTY FOLLOWING DIRECTIONS INTERMITTENTLY. BLOOD PRESSURE SOFT THIS SHIFT. TELEMETRY IN PLACE, SINUS RHYTHYM IN 90s UNTIL THIS EVENING WHEN TELEMTRY CALLED TO REPORT PATIENT IN A FLUTTER WITH RATE IN 180s. PATIENT WAS STANDING AT THE TIME, WHEN RETURNED TO BED A FLUTTER IN 110s. PATIENT IMPUSLIVE AND DIFFICULT TO DIRECT BACK INTO BED. PATIENT WITH NO BM X9 DAYS, MULTIPLE PRN MEDICATIONS ADMINISTERED AND MD NOTIFIED THIS MORNING, CONTINUES WITHOUT BM. BEDBATH PROVIDED THIS SHIFT. RED MOIST RASH NOTED TO GROIN AND ANUS, NEW ORDER FOR MEDICATED CREAM PLACED. POWERGLIDE DRESSING CHANGED THIS MORNING. PATIENT'S SPOUSE AT BEDSIDE MOST OF SHIFT TODAY, NO OTHER CONCERNS AT THIS TIME. WILL CONTINUE TO MONITOR.
--- NOTE | 2025-04-11 19:00 | NUR ---
Assumed Care AOx self, was not present, restraints had just been ordered and placed by day RN d/t agitation and difficulty redirecting. Apparently, once patient was returned to bed, patient had attempt to swing closed fists at staff. Patient appears restless and slightly agitated. Had clear enunciated words but w/ nonsensical speech during initial encounter doing bedside shift report. Tele monitor Cayla Jerez also notified this RN as well as day RN during RN:RN report that patient was in Aflutter/Afib 150-170s. Will medicate accordingly.
--- NOTE | 2025-04-11 19:27 | NUR ---
PATIENT PLACED IN RESTRAINTS PATIENT CONTINUES TO ATTEMPT TO GET OUT OF BED INDEPENDENTLY WITHOUT ASSISTANCE, REFUSING TO FOLLOW DIRECTIONS. PATIENT BECAME AGITATED AND THREATENED TO HIT STAFF WHILE CLENCHING FISTS. PATIENT MEDICATED WITH PAIN MEDS AND SCHEDULED SEROQUIL PRIOR TO BEING PLACED IN BILAT SOFT WRIST RESTRAINTS. MEGA, PATIENT'S SPOUSE, NOTIFIED BY TELEPHONE. BED SIDE SHIFT REPORT GIVEN. NO OTHER CONCERNS AT THIS TIME.
[2025-04-11] MEDS ORDERED: Miconazole Nitrate 28 GM CREAM..G. TOP SCH (21:00)
[2025-04-11] MEDS ORDERED: Docusate Sodium/Senna 1 Tab PO SCH (21:00)
[2025-04-12] MEDS ORDERED: LORazepam 2 MG/ML 1ML Injection IV ONE (00:30)
--- NOTE | 2025-04-12 02:21 | NUR ---
cONATACTED HOSPITALIST @0000 PRESCRIBED .25MG ATIVAN FOR AGITATION AND RESTLESSNESS
--- NOTE | 2025-04-12 04:06 | NUR ---
pT PLACED IN SOFT RESTRAINTS AT THE BEGINNING OF SHIFT, START TIME FOR ORDER IS 1910. PT HAS BEEN VERY CONFUSED AND AGITATED THROUGHOUT SHIFT. CONTINUES TO PULL AT TELE WIRES AND UPTON CATHETER AND DOES NOT RESPOND TO REDIRECTION. LATER IN THE SHIFT HAS BEGUN TO HAVE HALLUCINATIONS STATING THAT THERE IS A CAT WELL HIS MOTHER AND GRANDMOTHER IN THE ROOM. PT REMAINS ON RA AND HAS BEEN IN AFIB/AFLUTTER UP TO 170 THIS EVENING. STILL VOIDING PER URINARY CATHETER. WAS NOTIFIED THAT PT WAS HAVING FACIAL FLUSHING D/T A RASH, THIS APPEARS TO HAVE SUBSIDED. POWERGLIDE STILL FLUSHING W/ BLOOD RETURN.
[2025-04-12 04:36] VITALS: BP 103/74
[2025-04-12 05:10] VITALS: BP 94/64
[2025-04-12] MEDS ORDERED: Potassium Phosphate Dibasic 30 MM in Dextrose 5% 500 ML IV STA (05:33)
[2025-04-12] MEDS ORDERED: NS 500 ML IV ONE (05:40)
[2025-04-12 06:38] LABS: BASOPHILS ABSOLUTE AUTO 0.02 K/mm3 (0.00-0.23); BASOPHILS PERCENT AUTO 0 % (0-2); EOSINOPHILS ABSOLUTE AUTO 0.16 K/mm3 (0.00-0.68); EOSINOPHILS PERCENT AUTO 2 % (0-6); Hematocrit 36.6 % (37.0-53.0); Hemoglobin 12.4 g/dL (13.5-17.5); IMMATURE GRAN ABSOLUTE AUTO 0.02 K/mm3 (0.00-0.10); IMMATURE GRAN PERCENT AUTO 0 % (0-1); LYMPHOCYTES ABSOLUTE AUTO 1.11 K/mm3 (0.84-5.20); LYMPHOCYTES PERCENT AUTO 16 % (21-46); MONOCYTES ABSOLUTE AUTO 0.80 K/mm3 (0.16-1.47); MONOCYTES PERCENT AUTO 12 % (4-13); Mean Corpuscular HGB Conc 33.9 g/dL (31.5-36.5); Mean Corpuscular Volume 97 fL (80-100); NEUTROPHILS ABSOLUTE AUTO 4.68 K/mm3 (1.96-9.15); NEUTROPHILS PERCENT AUTO 69 % (41-73); NRBC ABSOLUTE 0.00 K/mm3 (0.00-0.02); NRBC Auto 0.0 /100 WBC (0.0-0.2); Platelet Count 145 K/mm3 (150-400); RDW Coefficient Variation 13.0 % (11.7-14.2); RDW Standard Deviation 46.5 fL (35.1-46.3)
--- NOTE | 2025-04-12 06:39 | NUR ---
Shift Summary AO to self. Nonsensical speech. Has been restless all night despite being medicated w/ lorazepam and seroquel. Patient has been drowsy but just won't stay asleep. Has been waxing and waning with behavior, but consistently pulling and tugging at tele cords and trying to get a hold of his catheter tube. When agitation increases, patient starts to use foul language and clench his fists. Visual hallucinations noted tonight w/ patient seeing a cat in the room. Tele monitor has reported multiple episodes of sustained HR of 130's w/ ocassional nonsustained HR 150's to 170s. BP has been somewhat soft tonight w/ SBP mid 90s. Nate Goode RN called Dr. Sandro Schumacher RE soft bp's and sustained tachycardia. Dr. Schumacher to review chart, awaiting new orders. Bilateral locked tuff cuffs in place of bilateral soft wrist restraints because patient has been tugging on the soft wrist restraints and lengthing its reach allowing patient to pull concealed lines (phan catheter and telemetry leads).
[2025-04-12 07:02] LABS: Alanine Aminotransfer (ALT/SGP 30.0 U/L (12-78); Albumin, Blood 1.7 g/dL (3.4-5.0); Albumin/Globulin Ratio 0.4 (0.8-1.8); Anion Gap 9.0 mmol/L (3-11); Aspartate Aminotrans (AST/SGOT 23.0 U/L (12-37); Bilirubin, Total 0.7 mg/dL (0.1-1.0); Blood Urea Nitrogen 14.0 mg/dL (8-24); CO2, Blood 25.0 mmol/L (21-32); Calcium, Blood 9.3 mg/dL (8.5-10.1); Chloride, Blood 107.0 mmol/L (98-108); Creatinine, Blood 0.71 mg/dL (0.60-1.20); Globulin, Blood 3.8 g/dL (2.2-4.0); Glucose, Blood 76.0 mg/dL (70-99); Magnesium, Blood 1.8 mg/dL (1.6-2.4); Phosphorus, Blood 2.4 mg/dL (2.5-4.9); Potassium, Blood 3.4 mmol/L (3.5-5.5); Sodium, Blood 138.0 mmol/L (136-145); Total Protein, Blood 5.5 g/dL (6.4-8.2)
[2025-04-12 07:26] VITALS: BP 109/93
[2025-04-12] MEDS ORDERED: Atropine Sulfate 1% Opth Soln 2ML BTL SL PRN (11:55)
[2025-04-12] MEDS ORDERED: Morphine Sulfate 20 MG/1ML 1 ML Oral Syringe SL PRN (11:55)
[2025-04-12] MEDS ORDERED: Haloperidol Lactate 2 MG / ML 15ML BTL PO PRN (11:55)
[2025-04-12] MEDS ORDERED: Ondansetron 4 MG SoluTab MM ONE (12:00)
[2025-04-12] MEDS ORDERED: Ondansetron 4 MG SoluTab MM PRN (12:00)
--- NOTE | 2025-04-12 19:24 | NUR ---
SHIFT SUMMARY PATIENT A/OX SELF, CONFUSED, DISORIENTED, RESTLESS, AGITATION THIS AM. HEART RATE IN AFIB IN 180s, MD NOTIFIED. PATIENT'S SPOUSE, MEGA, ARRIVED TO PATIENT'S ROOM AND SOON AFTER PATIENT CONVERTED TO SINUS RHYTHYM. MD AT BEDSIDE AND MEGA EXPRESSED WISHES TO MAKE PATIENT COMFORT MEASURES ONLY. ORDERS CHANGED THIS MORNING, POWERGLIDE REMOVED, TELEMETRY REMOVED. PATIENT MEDICATED WITH ATIVAN AND ROXANOL PER SEP FOR AGITATION AND HEAD PAIN. PATIENT HAS BEEN ABLE TO REST THIS AFTERNOON AND IS CURRENTLY SLEEPING IN BED. WAS ABLE TO TRANSFER TO HIS RECLINER EARLIER TODAY. RESTRAINTS WERE DISCONTINUED WHEN PATIENT CONVERTED TO COMFORT MEASURES. PATIENT WITH NO BM X10 DAYS, DENIES DISCOMFORT R/T CONSTIPATION, PATIENT CONINTUES WITH MINIMAL INTAKE AND REFUSING MEALS. NO OTHER CONCERNS AT THIS TIME, BEDSIDE SHIFT REPORT COMPLETED WITH TELEMARKETER NURSES.
--- NOTE | 2025-04-13 06:13 | NUR ---
PT RESTED COMFORTABLY ALL NIGHT, NO COMPLAINTS OF PAIN/GRIMMACING/MOANING WILL PASS ALONG TO DAYSHIFT.
--- NOTE | 2025-04-13 16:49 | NUR ---
THERAPUTIC VISIT TO PATIENT AND SPOUSE. WE DISCUSSED HOSPICE AND WHAT THAT MAY LOOK LIKE GOING HOME. MEGA REPORTED THAT SHE IS CONCERNED THAT SHE MAY NOT BE ABLE TO MANAGE MARIA'S CARE AT HOME IF HE IS AGITATES AND ATTEMPTING TO GET OUT OF BED. TODAY HE IS RESTING AND HIS SKIN APPEARS MORE PALE THAN PREVIOUS VISIT. SHE EXPRESSED THAT IF HE IS COMFORTABLE AND RESTING THAT SHE WOULD LIKE TO TAKE HIM HOME. WE AGREED TO REVISIT IN THE MORNING IF HE IS MORE APPROPRIATE TO CONSIDER DISCHARGE. RELAYED TO TELEMARKETING FUNDRAISER. PROVIDED COPIES OF "THE 11TH HOUR" AND "GONE FROM MY SIGHT" PROVIDED ICE CREAM TO PATIENT
--- NOTE | 2025-04-13 16:53 | NUR ---
SHIFT SUMMARY: A&O TO SELF AND SPOUSE. PLEASANT AND COOPERATIVE WITH CARE. SPOUSE IN ROOM THROUGHOUT MAJORITY OF THE DAY. MEDICATED FOR PAIN X1. NO S/S OF AGITATION. BREATHING EQUAL AND NONLABORED. COMFORT MEASURES CONTINUE. UPTON CATHETER REMAINS PATENT AND DRAINING TO GRAVITY. SITTING UP IN BED WATCHING TV AT THIS TIME. BED LOCKED AND IN THE LOWEST POSITION. CALL LT WITHIN REACH.
--- NOTE | 2025-04-14 06:10 | NUR ---
PT RESTED COMFORTABLY ALL EVENING, CATH CARE PERFORMED AND 1X DOSE OF 20MG ROXINAL GIVEN PO EARLY IN THE NIGHT. PT AWOKE THIS AM ABLE TO MAINTAIN CONVERSATION AND STATES THAT HE IS COMFORTABLE AND EXPRESSED WISHES TO SEE HIS AND TO WATCH FOOTBALL. STATES MOUTH IS DRY AND DOES NOT WANT TO DRINK WATER, WAS GIVEN SPRITE WHICH HE SEEMED PLEASED WITH.
--- NOTE | 2025-04-14 19:25 | NUR ---
NOTE PT ALERT, COOPERATIVE. DOESN'T LIKE WATER. ONLY DRINKING STARRY. HE WILL TAKE A TEST SIP TO MAKE SURE IT'S NOT WATER. COMFORT CARE. MEDCAITED FOR HEADACJE X2. EFFECTIVE. HE HAS NIBBLED A LITTLE. FAMILY SAT WITH HIM MOST OF THE DAY. BED ALARM ON. CALL LIGHT WITH IN REach. care ongoing
[2025-04-14 20:25] VITALS: BP 103/80
--- NOTE | 2025-04-15 06:57 | NUR ---
SHIFT SUMMARY; PT A/OX2 (SELF/PERSON), PULLING INTERMITTENTLY AT UPTON CATH, AND TRYING TO GET UP OOB. PT MEDICATED WITH SEROQUEL 50MG AT 1822 AND 1 MG ATIVAN PO AT 2008, AND ROXANOL 20MG AT 2116 FOR AGITATION. PT SLEPT AFTER MED ADMINISTRATION, BUT THEN AWOKE AND ATTEMPTED TO GET OOB MULTIPLE TIMES WITH NO SUCCESS WITH REDIRECTION. ATIVAN 2MG GIVEN PO AT 326. PT OBSERVED SLEEPING AFTER MED ADMINISTRATION. PT HAS NOT HAD BM THIS SHIFT. URINE OUTPUT APPROX 1000ML FROM UPTON CATH. CALL LIGHT WITHIN REACH. BED IN LOW POSITION WITH ALARM ON.
[2025-04-15] MEDS ORDERED: Acetaminophen650 M1 (11:47)
[2025-04-15] MEDS ORDERED: SENN187 PO (11:47)
[2025-04-15] MEDS ORDERED: Norco 5-325 Ta1 EACH PO (11:48)
[2025-04-15] MEDS ORDERED: Haldol Dec50 MG/1 ML (11:48)
[2025-04-15] MEDS ORDERED: Ativan1 MG PO (11:49)
[2025-04-15] MEDS ORDERED: MELATONIN5 M1 PO (11:49)
[2025-04-15] MEDS ORDERED: MORP20L PO (11:51)
[2025-04-15] MEDS ORDERED: NICO21TP TOP (11:52)
[2025-04-15] MEDS ORDERED: MIRALAX17 GM PO (11:53)
[2025-04-15] MEDS ORDERED: Prednisone10 MG PO (11:53)
[2025-04-15] MEDS ORDERED: ONDA4ODT MM (11:53)
[2025-04-15] MEDS ORDERED: QUET25 PO (11:54)
[2025-04-15] MEDS ORDERED: PROM25 PO (11:54)
[2025-04-15] MEDS ORDERED: Seroquel Xr50 MG PO (11:55)
[2025-04-15] MEDS ORDERED: TRANSDERM-SCOP1 EA10 TD (11:55)
--- NOTE | 2025-04-15 12:12 | NUR ---
DISCHARGE PT SLEPT T/O SHIFT, DIDN'T WAKE EVEN DURING REPOSITIONS OR FOR SPOUSE WHEN SHE ARRIVED FOR DISCHARGE. NO IV'S OR LINES IN PLACE, PT TRANSPORTED VIA WHEELCHAIR TO DISCHARGE HOME, SPOUSE CONFIRMED SHE HAS BEEN IN CONTACT WITH HOSPICE AND IS PREPARED AT HOME AND TOOK ALL PTS BELONGINGS AND HARD SCRIPT AT DISCHARGE @ 1200.
== END 2025-04-15 12:01 | disposition hospice, home (50) | DRG 308 ==
LOC: ER 19:16 → ERHOLD 19:17 → MEDS 19:17
PROVIDERS: Emergency Medicine; Student in an Organized Health Care Education/Training Program; ADMIT Internal Medicine
PROC: 0T9B70Z Drainage of Bladder with Drainage Device, Via Natural or Artificial Opening (ICD-10-PCS; principal; 2025-04-04)
DX: I48.91 Unspecified atrial fibrillation (principal); G93.41 Metabolic encephalopathy; C34.91 Malignant neoplasm of unspecified part of right bronchus or lung; C78.7 Secondary malignant neoplasm of liver and intrahepatic bile duct; C79.31 Secondary malignant neoplasm of brain; C79.72 Secondary malignant neoplasm of left adrenal gland; C79.71 Secondary malignant neoplasm of right adrenal gland; E27.1 Primary adrenocortical insufficiency; R64 Cachexia; Z51.5 Encounter for palliative care; Z66 Do not resuscitate; F17.210 Nicotine dependence, cigarettes, uncomplicated; E83.42 Hypomagnesemia; I11.0 Hypertensive heart disease with heart failure; I50.9 Heart failure, unspecified; E83.39 Other disorders of phosphorus metabolism; Z68.23 Body mass index [BMI] 23.0-23.9, adult; E87.6 Hypokalemia; E78.00 Pure hypercholesterolemia, unspecified; R33.9 Retention of urine, unspecified; E66.9 Obesity, unspecified; E78.5 Hyperlipidemia, unspecified; K21.9 Gastro-esophageal reflux disease without esophagitis; F41.9 Anxiety disorder, unspecified; F32.A Depression, unspecified; Z98.52 Vasectomy status; Z88.0 Allergy status to penicillin; Z79.82 Long term (current) use of aspirin; Z79.899 Other long term (current) drug therapy; Z78.1 Physical restraint status
CPT/HCPCS: 36415; 51701; 70450; 71045; 80053; 81001; 82140; 82533; 83735; 83880; 84100; 84484; 85025; 93005; 93010; 96361; 96372; 96374; 96375; 96376; 99285-25; A9270; G0378; J1630; J1650; J2060; J3010; J3475; J7030; J7040; J7060; J7120; J7512